=== PATIENT | male | born 1985 | race Caucasian/White ===

== ENCOUNTER 2022-03-14 10:20 | Emergency (ER) | payer MEDICAID ==
[~2022-03-14] VITALS: Ht 167.6 cm; Wt 63.5 kg
--- NOTE | 2022-03-14 10:33 | NUR ---
PT AMBULATED TO ER BED 8
[2022-03-14 10:35] VITALS: BP 146/94
--- NOTE | 2022-03-14 11:05 | NUR ---
PT SEEN EXITING THE ER. PT NOT FOUND IN LOBBY/OUTSIDE
--- NOTE | 2022-03-14 11:14 | NUR ---
PT NOT FOUND IN LOBBY/OUTSIDE. ATTEMPTED TO CALL PT, NUMBER NOT VALID. PATIENT LEFT WITHOUT BEING SEEN BY DR. SANCHEZ/JEANNE VILLEGAS. NO FURTHER CARE PROVIDED FOR PATIENT.
== END 2022-03-14 11:14 | disposition left against medical advice (07) ==
LOC: MED 10:20
DX: M54.6 Pain in thoracic spine (principal); Z53.21 Procedure and treatment not carried out due to patient leaving prior to being seen by health care provider